=== PATIENT | female | born 1965 | race Caucasian/White ===

== ENCOUNTER 2021-02-21 14:20 | Emergency (ER) | payer OTHER ==
[2021-02-21] MEDS ORDERED: Lidocaine 1% 10 ML MDV INJECT ONE (14:36)
--- NOTE | 2021-02-21 14:50 | EDM.PDOC ---
ED HPI GENERAL MEDICAL PROBLEM - General Chief Complaint: Laceration Stated Complaint: CUT ON RIGHT EAR Time Seen by Provider: 02/21/21 14:31 Source of Information: Reports: Patient History Limitations: Reports: No Limitations - History of Present Illness INITIAL COMMENTS - FREE TEXT/NARRATIVE: 55-year-old female presents emergency department today with complaints of laceration to her right ear. Patient states she was ambulating on the sidewalk when she tripped and tried to catch herself and hit the right side of her head on the step. She denies any loss of consciousness, blurred vision or double vision. She denies any ringing in her ears. She does have a laceration noted to the top of her ear just at the helix root. Bleeding is controlled. Right Ear Pain Score (Numeric/FACES): 4 - Related Data Allergies Allergy/AdvReac Type Severity Reaction Status Date / Time Penicillins Allergy Itching Verified 02/21/21 14:32 Home Meds: Home Meds Topiramate [Topamax] 25 mg PO DAILY 02/21/21 [History] Past Medical History - Past Health History Medical/Surgical History: Denies Medical/Surgical History Social & Family History - Tobacco Use Tobacco Use Status *Q: Never Tobacco User Second Hand Smoke Exposure: No - Caffeine Use Caffeine Use: Reports: None - Recreational Drug Use Recreational Drug Use: No ED ROS GENERAL - Review of Systems Review Of Systems: Comprehensive ROS is negative, except as noted in HPI. ED EXAM, SKIN/RASH Exam: See Below Exam Limited By: No Limitations General Appearance: Alert, WD/WN, No Apparent Distress Ears: Normal External Exam, Hearing Grossly Normal, Other (Laceration noted at the helix root of right ear) Nose: Normal Inspection Throat/Mouth: Normal Inspection, Normal Lips, Normal Voice, No Airway Compromise Head: Atraumatic, Normocephalic Neck: Normal Inspection, Supple Respiratory/Chest: No Respiratory Distress, No Accessory Muscle Use Cardiovascular: Normal Peripheral Pulses, Regular Rate, Rhythm GI/Abdominal: No Distention (Female) Exam: Deferred Rectal (Female) Exam: Deferred Back Exam: Normal Inspection Extremities: Normal Inspection Neurological: Alert, Oriented, Normal Cognition Psychiatric: Normal Affect, Normal Mood Skin: Warm, Dry, Normal Color, No Rash, Wound/Incision (Laceration noted at helix root of right ear). No: Intact Location, Skin: Head Lymphatic: No Adenopathy ED SKIN PROCEDURES - Laceration/Wound Repair Right Ear Appearance: Superficial, Linear Local Anesthesia - Lidocaine (Xylocaine): 1% Plain Local Anesthetic Volume: 3cc Closed with: Sutures Lac/Wound length In cm: 3 Suture Size: 5-0 # of Sutures: 12 Suture Type: Nylon, Interrupted Course - Vital Signs Text/Narrative:: Laceration noted to the helix root of the right ear. I have ordered for lidocaine 1%. Area will need to be surgically repaired. Last Recorded V/S: Last Vital Signs Temp 98.0 F 02/21/21 14:30 Pulse 81 02/21/21 14:30 Resp 15 02/21/21 14:30 BP 150/87 H 02/21/21 14:30 Pulse Ox 96 02/21/21 14:30 - Orders/Labs/Meds Meds: Medications Discontinued Medications Generic Name Dose Route Start Last Admin Trade Name Sandie PRN Reason Stop Dose Admin Lidocaine HCl 10 ml 02/21/21 14:36 02/21/21 14:41 Lidocaine 1% 10 Ml Mdv INJECT 02/21/21 14:37 10 ml ONETIME ONE Administration - Re-Assessments/Exams Free Text/Narrative Re-Assessment/Exam: 02/21/21 15:54 Wound was draped and prepped in sterile fashion prior to suturing. Departure - Departure Time of Disposition: 15:55 Disposition: Home, Self-Care 01 Condition: Good Clinical Impression: Laceration of ear Qualifiers: Encounter type: initial encounter Laterality: right Qualified Code(s): S01.311A - Laceration without foreign body of right ear, initial encounter - Discharge Information Instructions: Laceration Care, Adult, [id number] Referrals: PCP,Not In Area [Primary Care Provider] - Forms: ED Department Discharge Additional Instructions: You were seen in the emergency department with a laceration to your right ear. Wound was surgically repaired. As we discussed, this area likely takes a little longer to heal and may thicken as it heals due to it being an area of cartilage. Recommend that you have the sutures removed in about 7 days time. Wash the wound twice daily with mild soap such as Nico's baby shampoo or Dial soap. Pat the area dry and then apply a thin film of bacitracin. Watch for signs and symptoms of infection such as increased warmth, swelling, or pus. You do have some bruising noted behind the right ear. Should you develop a severe headache, blurred vision or double vision, nausea or vomiting, it is recommended that you return to the emergency department for reevaluation. Sepsis Event Note (ED) - Evaluation Sepsis Screening Result: No Definite Risk - Focused Exam Vital Signs: Vital Signs Temp Pulse Resp BP Pulse Ox 02/21/21 14:30 98.0 F 81 15 150/87 H 96
== END 2021-02-21 16:05 | disposition home or self-care (01) ==
LOC: JD.ED 14:20
DX: S01.311A Laceration without foreign body of right ear, initial encounter (principal); Z88.0 Allergy status to penicillin; W01.198A Fall on same level from slipping, tripping and stumbling with subsequent striking against other object, initial encounter; Y92.480 Sidewalk as the place of occurrence of the external cause
CPT/HCPCS: 12013; 99282; 99282-25